=== PATIENT | female | born 1960 | race Caucasian/White ===

== ENCOUNTER 2020-06-08 12:44 | Day surgery (SDC) | payer BC ==
[~2020-06-08 12:44] MED LIST: ACET500; IBUPROFEN200 MG; LEVSOD50 PO; Stool Softener100 MG; [UNRECOGNIZED DRUG - OTHER]
--- NOTE | 2020-06-08 13:57 | NUR ---
06/08/20 1357 L[place] KING ONE UNSUCCESSFUL ATTEMPT BY EVA ONE SUCCESSFUL ATTEMPT BY RN ON LEFT HAND PT TOW
== END 2020-06-08 15:25 | disposition home or self-care (01) ==
LOC: ORSCSDS 12:44
PROVIDERS: Internal Medicine Gastroenterology
PROC: 0DBH8ZX Excision of Cecum, Via Natural or Artificial Opening Endoscopic, Diagnostic (ICD-10-PCS; principal; 2020-06-08 14:15)
DX: R19.4 Change in bowel habit (principal); K62.5 Hemorrhage of anus and rectum; D12.0 Benign neoplasm of cecum; K57.30 Diverticulosis of large intestine without perforation or abscess without bleeding; Z86.010 Personal history of colon polyps
CPT/HCPCS: 88305; J2704; J7120